=== PATIENT | female | born 1995 | race Caucasian/White ===

== ENCOUNTER 2021-10-26 18:28 | Emergency (ER) | payer MEDICAID ==
[2021-10-26 19:51] LABS: CORONAVIRUS COVID-19 NAA POSITIVE (NEGATIVE)
[2021-10-26] MEDS ORDERED: EPINEPHrine 1 MG/ML SDV IM PRN (19:53)
[2021-10-26] MEDS ORDERED: Famotidine 20 MG/2 ML SDV IVPUSH PRN (19:53)
[2021-10-26] MEDS ORDERED: methylPREDNISolone Sodium Succinate 125 MG/2 ML SDV IVPUSH PRN (19:53)
[2021-10-26] MEDS ORDERED: diphenhydrAMINE 50 MG/ML SDV IVPUSH PRN (19:53)
--- NOTE | 2021-10-26 19:54 | EDM.PDOC ---
ED HPI GENERAL MEDICAL PROBLEM - General Chief Complaint: Respiratory Problem Stated Complaint: SOB\COUGH Time Seen by Provider: 10/26/21 18:46 Source of Information: Reports: Patient History Limitations: Reports: No Limitations - History of Present Illness INITIAL COMMENTS - FREE TEXT/NARRATIVE: 26-year-old female presents the emergency department today with complaints of a 5-day history of shortness of breath, nausea, chills, headache and swollen throat. She states she does have a history of asthma and has had to use her inhaler over the past couple of days for the first time in about a year. States that her mom was Covid +2 weeks ago. Generalized Pain Score (Numeric/FACES): 7 - Related Data Allergies Allergy/AdvReac Type Severity Reaction Status Date / Time Sulfa (Sulfonamide Allergy Rash Verified 10/26/21 18:44 Antibiotics) Home Meds: Home Meds cloNIDine [Catapres-TTS 1] 0.1 mg TOP ASDIRECTED 10/26/21 [History] Past Medical History Respiratory History: Reports: Asthma Musculoskeletal History: Reports: Other (See Below) Other Musculoskeletal History: right pinky fracture Psychiatric History: Reports: Anxiety, Depression Social & Family History - Tobacco Use Tobacco Use Status *Q: Current Every Day Tobacco User Years of Tobacco use: 10 Packs/Tins Daily: 1 - Caffeine Use Caffeine Use: Reports: Coffee, Energy Drinks, Soda - Recreational Drug Use Recreational Drug Use: Yes Recreational Drug Type: Reports: Marijuana/Hashish Recreational Drug Use Frequency: Weekly ED ROS GENERAL - Review of Systems Review Of Systems: Comprehensive ROS is negative, except as noted in HPI. ED EXAM, GENERAL - Physical Exam Exam: See Below Exam Limited By: No Limitations General Appearance: Alert, WD/WN, Mild Distress Ears: Normal External Exam, Hearing Grossly Normal Nose: Normal Inspection Throat/Mouth: Normal Inspection, Normal Lips, Normal Voice, No Airway Compromise Head: Atraumatic, Normocephalic Neck: Normal Inspection, Supple Respiratory/Chest: No Respiratory Distress, Lungs Clear, Normal Breath Sounds, No Accessory Muscle Use, Chest Non-Tender Cardiovascular: Normal Peripheral Pulses, Regular Rate, Rhythm, No Edema, No Murmur Peripheral Pulses: 2+: Radial (L), Radial (R) GI/Abdominal: Normal Bowel Sounds, Soft, Non-Tender, No Distention (Female) Exam: Deferred Rectal (Female) Exam: Deferred Back Exam: Normal Inspection, Full Range of Motion Extremities: Normal Inspection, Normal Range of Motion, Non-Tender, No Pedal Edema, Normal Capillary Refill Neurological: Alert, Oriented, Normal Cognition Psychiatric: Normal Affect, Normal Mood Skin Exam: Warm, Dry, Intact, Normal Color, No Rash Lymphatic: No Adenopathy Course - Vital Signs Text/Narrative:: Physical exam reveals an ill-appearing female. Exam is essentially unremarkable. Blood pressure is slightly elevated however patient is hemodynam ically stable. Will obtain Covid test as well as lab studies to include a CBC, BMP and magnesium level. Last Recorded V/S: Last Vital Signs Temp 98.8 F 10/26/21 20:40 Pulse 61 10/26/21 22:00 Resp 12 10/26/21 22:00 BP 120/80 10/26/21 22:00 Pulse Ox 99 10/26/21 22:00 - Orders/Labs/Meds Orders: Active Orders 24 hr Category Date Time Status Vital Signs [RC] Q15M Care 10/26/21 19:53 Active Chest 1V Frontal [CR] Stat Exams 10/26/21 20:27 Taken EPINEPHrine [Adrenalin] Med 10/26/21 19:53 Active 0.3 mg IM ASDIRECTED PRN Famotidine [Pepcid] Med 10/26/21 19:53 Active 20 mg IVPUSH ASDIRECTED PRN Sodium Chloride 0.9% [Saline Flush] Med 10/26/21 20:00 Active 30 ml FLUSH ASDIRECTED diphenhydrAMINE [Benadryl] Med 10/26/21 19:53 Active 50 mg IVPUSH ASDIRECTED PRN methylPREDNISolone Sod Succ [Solu-MEDROL] Med 10/26/21 19:53 Active 125 mg IVPUSH ASDIRECTED PRN Medication Orders Diphenhydramine HCl (Diphenhydramine 50 Mg/Ml Sdv) 50 mg IVPUSH ASDIRECTED PRN PRN Reason: hypersensitivity reaction Epinephrine HCl (Epinephrine 1 Mg/Ml Sdv) 0.3 mg IM ASDIRECTED PRN PRN Reason: hypersensitivity reaction Famotidine (Famotidine 20 Mg/2 Ml Sdv) 20 mg IVPUSH ASDIRECTED PRN PRN Reason: hypersensitivity reaction Methylprednisolone Sodium Succinate (Methylprednisolone Sodium Succinate 125 Mg/2 Ml Sdv) 125 mg IVPUSH ASDIRECTED PRN PRN Reason: hypersensitivity reaction Sodium Chloride (Sodium Chloride 0.9% 10 Ml Syringe) 30 ml FLUSH ASDIRECTED SURY Labs: Laboratory Tests 10/26/21 10/26/21 10/26/21 Range/Units 18:39 18:46 18:46 WBC 5.68 (3.98-10.04) K/mm3 RBC 4.65 (3.98-5.22) M/mm3 Hgb 13.6 (11.2-15.7) gm/dl Hct 41.6 (34.1-44.9) % MCV 89.5 (79.4-94.8) fl MCH 29.2 (25.6-32.2) pg MCHC 32.7 (32.2-35.5) g/dl RDW Std Deviation 40.4 (36.4-46.3) fL Plt Count 187 (182-369) K/mm3 MPV 10.4 (9.4-12.3) fl Neut % (Auto) 47.0 (34.0-71.1) % Lymph % (Auto) 41.2 (19.3-51.7) % Nicholas % (Auto) 8.1 (4.7-12.5) % Eos % (Auto) 3.3 (0.7-5.8) Baso % (Auto) 0.2 (0.1-1.2) % Neut # (Auto) 2.67 (1.56-6.13) K/mm3 Lymph # (Auto) 2.34 (1.18-3.74) K/mm3 Nicholas # (Auto) 0.46 H (0.24-0.36) K/mm3 Eos # (Auto) 0.19 (0.04-0.36) K/mm3 Baso # (Auto) 0.01 (0.01-0.08) K/mm3 Sodium 140 (136-145) mEq/L Potassium 3.4 L (3.5-5.1) mEq/L Chloride 102 (98-107) mEq/L Carbon Dioxide 28 (21-32) mEq/L Anion Gap 13.4 (5-15) BUN 9 (7-18) mg/dL Creatinine 0.8 (0.55-1.02) mg/dL Est Cr Clr Drug Dosing 111.37 mL/min Estimated GFR (MDRD) > 60 (>60) mL/min BUN/Creatinine Ratio 11.3 L (14-18) Glucose 71 (70-99) mg/dL Calcium 8.2 L (8.5-10.1) mg/dL Urine HCG, Qual (NEGATIVE) Influenza Type A RNA Negative (NEGATIVE) Influenza Type B RNA Negative (NEGATIVE) SARS-CoV-2 RNA (MICHELLE) Positive H (NEGATIVE) 10/26/21 Range/Units 20:14 WBC (3.98-10.04) K/mm3 RBC (3.98-5.22) M/mm3 Hgb (11.2-15.7) gm/dl Hct (34.1-44.9) % MCV (79.4-94.8) fl MCH (25.6-32.2) pg MCHC (32.2-35.5) g/dl RDW Std Deviation (36.4-46.3) fL Plt Count (182-369) K/mm3 MPV (9.4-12.3) fl Neut % (Auto) (34.0-71.1) % Lymph % (Auto) (19.3-51.7) % Nicholas % (Auto) (4.7-12.5) % Eos % (Auto) (0.7-5.8) Baso % (Auto) (0.1-1.2) % Neut # (Auto) (1.56-6.13) K/mm3 Lymph # (Auto) (1.18-3.74) K/mm3 Nicholas # (Auto) (0.24-0.36) K/mm3 Eos # (Auto) (0.04-0.36) K/mm3 Baso # (Auto) (0.01-0.08) K/mm3 Sodium (136-145) mEq/L Potassium (3.5-5.1) mEq/L Chloride (98-107) mEq/L Carbon Dioxide (21-32) mEq/L Anion Gap (5-15) BUN (7-18) mg/dL Creatinine (0.55-1.02) mg/dL Est Cr Clr Drug Dosing mL/min Estimated GFR (MDRD) (>60) mL/min BUN/Creatinine Ratio (14-18) Glucose (70-99) mg/dL Calcium (8.5-10.1) mg/dL Urine HCG, Qual Negative (NEGATIVE) Influenza Type A RNA (NEGATIVE) Influenza Type B RNA (NEGATIVE) SARS-CoV-2 RNA (MICHELLE) (NEGATIVE) Meds: Medications Generic Name Dose Route Start Last Admin Trade Name Freq PRN Reason Stop Dose Admin Diphenhydramine HCl 50 mg 10/26/21 19:53 Diphenhydramine 50 Mg/Ml Sdv IVPUSH ASDIRECTED PRN hypersensitivity reaction Epinephrine HCl 0.3 mg 10/26/21 19:53 Epinephrine 1 Mg/Ml Sdv IM ASDIRECTED PRN hypersensitivity reaction Famotidine 20 mg 10/26/21 19:53 Famotidine 20 Mg/2 Ml Sdv IVPUSH ASDIRECTED PRN hypersensitivity reaction Methylprednisolone Sodium Succinate 125 mg 10/26/21 19:53 Methylprednisolone Sodium Succinate 125 Mg/2 Ml Sdv IVPUSH ASDIRECTED PRN hypersensitivity reaction Sodium Chloride 30 ml 10/26/21 20:00 Sodium Chloride 0.9% 10 Ml Syringe FLUSH ASDIRECTED SURY Discontinued Medications Generic Name Dose Route Start Last Admin Trade Name Freq PRN Reason Stop Dose Admin CASIRIVIMAB/IMDEVIMAB 10 ml/ 110 mls @ 220 mls/hr 10/26/21 19:53 10/26/21 20:38 Sodium Chloride IV 10/26/21 20:22 220 mls/hr ONETIME ONE Administration Ketorolac Tromethamine 30 mg 10/26/21 20:27 10/26/21 20:36 Ketorolac 30 Mg/Ml Sdv IVPUSH 10/26/21 20:28 30 mg ONETIME ONE Administration - Radiology Interpretation Free Text/Narrative:: Nothing acute is appreciated on portable chest x-ray. Formal radiologist report is pending. - Re-Assessments/Exams Free Text/Narrative Re-Assessment/Exam: 10/26/21 19:54 Hematology is essentially unremarkable, chemistry reveals a potassium 3.4, anion gap 13.4, BUN 9, creatinine 0.8, glucose 71 Influenza a and B are negative, Covid is positive I spoke with the patient to provide information about Regeneron for herself. I offered her the fax sheet for patients and caregivers for Regener[facility] to read and review. I stated the therapy has been approved by an emergency use authorization process and has not fully been FDA reviewed or approved. I shared the potential risks from the therapy including risks/adverse reactions. I discussed there are other potential treatment options that are currently not FDA approved to treat COVID-19. Offered opportunity ask questions and all questions were answered. Patient voiced understanding and agreed to proceed with treatment for herself. 10/26/21 20:28 Urine hCG is negative prior to the initiation of antibody treatment. We will also obtain a portable chest x-ray. Patient is requesting something for headache. Will order Toradol 30 mg IV x1 dose. 10/26/21 22:17 Patient tolerated antibiotic infusion well. She is monitored for 1 hour after. She will be discharged home. Departure - Departure Time of Disposition: 22:18 Disposition: Home, Self-Care 01 Condition: Good Clinical Impression: COVID - Discharge Information Instructions: COVID-19: Quarantine vs. Isolation - [facility] (11/14/2020) Referrals: PCP,None [Primary Care Provider] - Forms: ED Department Discharge Additional Instructions: You were seen in the emergency department this evening and tested for Covid. Covid test came back positive. Lab studies were completed which were essentially unremarkable. Chest x-ray was completed and does not show any sign of pneumonia. While in the emergency department you did elect to receive antibody infusion for the treatment of Covid. As discussed, you likely should start to feel better in the next couple of days. However you do need to quarantine for total of 10 days time from the day of onset of your symptoms. Go home and rest and drink plenty of fluids and eat small frequent meals. Recommend taking Tylenol 650 mg every 4 hours as needed for fever or discomfort or ibuprofen 600 mg every 6-8 hours as needed for fever or discomfort. Sepsis Event Note (ED) - Focused Exam Vital Signs: Vital Signs Temp Pulse Resp BP Pulse Ox 10/26/21 22:00 61 12 120/80 99 10/26/21 21:45 62 11 L 118/75 98 10/26/21 21:30 76 17 116/80 99 10/26/21 21:15 70 13 117/79 99 10/26/21 21:00 67 16 123/80 100 10/26/21 20:45 68 14 123/83 99 10/26/21 20:40 98.8 F 65 12 121/87 100 10/26/21 18:43 98.1 F 78 20 147/86 H 100 - My Orders Last 24 Hours: My Active Orders 10/26/21 19:53 Vital Signs [RC] Q15M EPINEPHrine [Adrenalin] 0.3 mg IM ASDIRECTED PRN Famotidine [Pepcid] 20 mg IVPUSH ASDIRECTED PRN diphenhydrAMINE [Benadryl] 50 mg IVPUSH ASDIRECTED PRN methylPREDNISolone Sod Succ [Solu-MEDROL] 125 mg IVPUSH ASDIRECTED PRN 10/26/21 20:00 Sodium Chloride 0.9% [Saline Flush] 30 ml FLUSH ASDIRECTED 10/26/21 20:27 Chest 1V Frontal [CR] Stat - Assessment/Plan Last 24 Hours: My Active Orders 10/26/21 19:53 Vital Signs [RC] Q15M EPINEPHrine [Adrenalin] 0.3 mg IM ASDIRECTED PRN Famotidine [Pepcid] 20 mg IVPUSH ASDIRECTED PRN diphenhydrAMINE [Benadryl] 50 mg IVPUSH ASDIRECTED PRN methylPREDNISolone Sod Succ [Solu-MEDROL] 125 mg IVPUSH ASDIRECTED PRN 10/26/21 20:00 Sodium Chloride 0.9% [Saline Flush] 30 ml FLUSH ASDIRECTED 10/26/21 20:27 Chest 1V Frontal [CR] Stat
[2021-10-26] MEDS ORDERED: Sodium Chloride 0.9% 10 ML Syringe FLUSH SCH (20:00)
[2021-10-26] MEDS ORDERED: Ketorolac 30 MG/ML SDV IVPUSH ONE (20:27)
--- NOTE | 2021-10-27 07:03 | CR ---
Chest: Frontal view of the chest was obtained. Comparison: No prior chest imaging is available. Heart size and mediastinum are within normal limits. Lungs are clear with no definite acute parenchymal change being seen. Bony structures appear within normal limits. Impression: 1. Nothing acute is seen on frontal chest x-ray. Diagnostic code #1
== END 2021-10-26 22:15 | disposition home or self-care (01) ==
LOC: JD.ED 18:28
DX: U07.1 COVID-19 (principal); Z88.2 Allergy status to sulfonamides; Z72.0 Tobacco use
CPT/HCPCS: 0240U; 36415; 71045; 80048; 81025; 85025; 96374; 99284; J1885; M0243; Q0243